=== PATIENT | female | born 1975 | race Caucasian/White ===

== ENCOUNTER 2018-05-28 11:48 | Emergency (ER) | payer OTHER, SELFPAY ==
[2018-05-28 11:53] VITALS: BP 110/71; PULSE 67; RESP 12; TEMP 36.3; O2SAT 100; BMI 32.2
--- NOTE | 2018-05-28 12:35 | ED.BACK ---
HPI - Back Pain/Injury <MEGHNA Holland - Last Filed: 05/28/18 23:03> General Chief Complaint: Back Pain/Injury Stated Complaint: SCIATIC NERVE PAIN Time Seen by Provider: 05/28/18 12:58 Source: patient Mode of arrival: ambulatory Limitations: no limitations History of Present Illness HPI Narrative: 42-year-old female here for complaint of pain into her right lower back and radiating into her right buttocks and into her right thigh. She states that she has had some back pain over the last few days after she went canoeing and then the muscles appear to get tighter and then she started having pain that radiated into her buttocks and thigh area. She denies any trauma to the lower back itself. She is ambulatory she reports that worsening pain with motion and rest reduces her pain. She denies any loss of bladder control or bowel control. She denies any other concerns or complaints at this time. She denies any urinary symptoms. No fevers no chills MD Complaint: back pain Related Data Home Medications Medication Instructions Recorded Confirmed aspirin [Aspir-81] 81 mg PO DAILY 05/28/18 05/28/18 Previous Rx's Medication Instructions Recorded cyclobenzaprine 10 mg PO TID PRN #15 tab 05/28/18 prednisone 40 mg PO DAILY #8 tab 05/28/18 Allergies Allergy/AdvReac Type Severity Reaction Status Date / Time No Known Drug Allergies Allergy Verified 05/28/18 11:57 Review of Systems <MEGHNA Holland - Last Filed: 05/28/18 23:03> Constitutional Denies chills, Denies fever(s), Denies lethargy and Denies weakness Eyes Denies change in vision, Denies eye discharge, Denies irritation and Denies loss of vision ENT Ears, Nose, Mouth, and Throat: Denies change in voice, Denies neck pain and Denies sore throat Cardiovascular Denies chest pain, Denies irregular heart rhythm, Denies lightheadedness, Denies palpitations, Denies dyspnea, Denies dyspnea on exertion and Denies orthopnea Respiratory Denies cough, Denies dyspnea, Denies dyspnea on exertion and Denies wheezing Gastrointestinal Gastrointestinal: Denies abdominal pain, Denies change in bowel habits, Denies diarrhea, Denies nausea and Denies vomiting Genitourinary Denies hematuria, Denies flank pain, Denies urinary incontinence and Denies urinary urgency Musculoskeletal Reports back pain and Denies neck pain Integumentary/Breasts Denies pruritus, Denies erythema, Denies rash and Denies wounds Neurologic Denies confusion, Denies loss of vision and Denies weakness Psychiatric Denies anxiety, Denies confusion, Denies depression, Denies homicidal ideation and Denies suicidal ideation Endocrine Denies palpitations Hematologic/Lymphatic Denies easy bruising Allergic/Immunologic Denies wheezing Exam <MEGHNA Holland - Last Filed: 05/28/18 23:03> Initial Vital Signs Initial Vital Signs: Vital Signs Temperature 97.4 F L 05/28/18 11:53 Pulse Rate 67 05/28/18 11:53 Respiratory Rate 12 05/28/18 11:53 Blood Pressure 110/71 05/28/18 11:53 Pulse Oximetry 100 05/28/18 11:53 Const General: cooperative and well developed Nutritional Appearance: well nourished Orientation: alert, awake, oriented x3 and not confused HENMT Mouth: oral mucosae normal and moist mucous membranes Eyes Conjunctivae: conjunctivae normal Sclera: sclerae normal Pupils: PERRL EOM: EOM intact bilaterally Resp Effort & Inspection: normal respiratory effort, able to speak in complete sentences, no respiratory distress and no use of accessory muscles Auscultation: clear to auscultation bilaterally, no rales, no rhonchi and no wheezes Cardio Rate: regular rate Rhythm: regular rhythm Heart Sounds: no click, no gallops, no murmurs and no rubs Pulses: normal peripheral pulses General: No CVA tenderness Back/Spine/Pelvis Other: Tenderness on palpation to the right lower lumbar paraspinals. No midline tenderness. Tenderness on palpation down into posterior buttocks into posterior thigh. Right straight leg test positive. Distal sensation is intact. Distal pulses are intact. Distal range of motion is intact. Skin General: no rashes or lesions noted, No jaundice and No petechiae Neuro General: alert, oriented x3, gait normal and no focal motor deficits Speech: speech normal <Cristobal Dey MD - Last Filed: 05/30/18 08:47> Initial Vital Signs Initial Vital Signs: Vital Signs Temperature 97.4 F L 05/28/18 11:53 Pulse Rate 67 05/28/18 11:53 Respiratory Rate 12 05/28/18 11:53 Blood Pressure 110/71 05/28/18 11:53 Pulse Oximetry 100 05/28/18 11:53 Course <MEGHNA Holland - Last Filed: 05/28/18 23:03> Vital Signs - 8 hr 05/28/18 11:53 Temperature 97.4 F L Pulse Rate 67 Respiratory Rate 12 Blood Pressure 110/71 Pulse Oximetry 100 <Cristobal Dey MD - Last Filed: 05/30/18 08:47> Vital Signs - 8 hr 05/28/18 11:53 Temperature 97.4 F L Pulse Rate 67 Respiratory Rate 12 Blood Pressure 110/71 Pulse Oximetry 100 MDM - Back Pain/Injury <MEGHNA Holland - Last Filed: 05/28/18 23:03> MDM Narrative Medical decision making narrative: Signs and symptoms presents as nontraumatic right lumbar paraspinal strain with sciatica to right side. Hmis-dxp-yhywsdp ibuprofen as needed for discomfort anti-inflammatory effects. Cyclobenzaprine to help with any muscle spasms. She is also prescribed short course of prednisone for also anti-inflammatory effects. Rest to the area gentle range of motion to help keep muscles loose. Follow up with primary care provider this week for re-evaluation. For any worsening symptoms return to the emergency room. No driving while on the cyclobenzaprine as a can cause drowsiness. Discharge Plan Departure Patient Disposition: Home, Self-Care Clinical Impression: Low back pain Discharge Date/Time: 05/28/18 14:01 Instructions: DI for Back Pain With Sciatica Activity Restrictions/Additional Instructions: Signs and symptoms presents as nontraumatic right lumbar paraspinal strain with sciatica to right side. Jlll-ato-ewioxmc ibuprofen as needed for discomfort anti-inflammatory effects. Cyclobenzaprine to help with any muscle spasms. She is also prescribed short course of prednisone for also anti-inflammatory effects. Rest to the area gentle range of motion to help keep muscles loose. Follow up with primary care provider this week for re-evaluation. For any worsening symptoms return to the emergency room. No driving while on the cyclobenzaprine as a can cause drowsiness. Prescriptions: New cyclobenzaprine 10 mg tablet 10 mg PO TID PRN (Reason: muscle spasm) Qty: 15 RF: 0 prednisone 20 mg tablet 40 mg PO DAILY Qty: 8 RF: 0 No Action aspirin [Aspir-81] 81 mg Tablet,Delayed Release (Dr/Ec) 81 mg PO DAILY RF: 0 Referrals: [facility] [address] [place] [Provider Group] Bradley Esquivel MD [Primary Care Provider] - <Cristobal Dey MD - Last Filed: 05/30/18 08:47> Sign Out Provider Sign Out Attestation: The PA/AESTHETICS INSTRUCTOR functioned independently for the care of this pt, I was available, but not asked to participate in care. I am unable to determine appropriateness of management without personally examining the pt.
[2018-05-28 13:56] VITALS: BP 99/80; PULSE 62; RESP 14; O2SAT 100
== END 2018-05-28 14:01 | disposition home or self-care (01) ==
PROVIDERS: Emergency Provider Nurse Practitioner Family
DX: M54.5 Low back pain (principal)
CPT/HCPCS: 99282

== ENCOUNTER → 2021-12-22 16:40 | Outpatient (CLI) | payer OTHER, SELFPAY | PROVIDERS: Referring Provider Obstetrics & Gynecology; Visit Provider Obstetrics & Gynecology | DX: N83.202 Unspecified ovarian cyst, left side (principal) | CPT/HCPCS: 36415; 86304 ==

== ENCOUNTER → 2022-10-21 15:02 | Outpatient (CLI) | payer OTHER, SELFPAY ==
[2022-10-21 18:24] LABS: COVID19 -Nasal RAPID Negative (Negative)
== END ==
PROVIDERS: Visit Provider Obstetrics & Gynecology
DX: Z20.822 Contact with and (suspected) exposure to COVID-19 (principal); Z01.812 Encounter for preprocedural laboratory examination
CPT/HCPCS: 87635

== ENCOUNTER 2022-10-22 06:26 | Day surgery (SDC) | payer OTHER, SELFPAY ==
[2022-10-20 07:44] VITALS: BMI 33.7
--- NOTE | 2022-10-22 | PATH_ITS ---
[facility] Accession Number: [id number] . 01 Material submitted: . fallopian tube - BILATERAL FALLOPIAN TUBES, LEFT TUBAL CYST . 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 Negative for significant atypia and malignancy. MRV 10/27/2022 1636 Local . 01 Electronically signed: . Maddy Hong MD, Pathologist NPI- [id number] . 01 Gross description: . The specimen is received in formalin labeled with the patient's name, , and bilateral fallopian tubes and left tubal cyst, and consists of two fallopian tubes and a cystic structure. The first fallopian tube is intact, fimbriated, and measures 4.7 x 0.7 cm with no cystic structures identified. Sectioning reveals an unremarkable stellate lumen. The second fallopian tube is fragmented without fimbriae measuring 2.7 cm in length by 0.5 cm in diameter with brown smooth serosa and no cystic structures identified. Sectioning reveals an unremarkable stellate lumen. The cystic structure measures 4.5 x 3.5 x 2.7 cm. The external surface is congested and smooth with an area consistent with fimbriae identified. The external surface of the cyst is inked blue. The cyst contains clear serous fluid, and the internal surface is brown and wrinkled with no excrescences identified, and ranges from 0.1 to 0.3 cm thick. Social Media Content Manager sections are submitted as follows: A1: First fallopian tube to include cross-sections and entire bisected fimbriae. A2: Second nonfimbriated fallopian tube to include fimbriae taken from the cystic structure and cross-sections. A3-A4: Social Media Content Manager cystic structure. ([id number]) /MRV 10/23/2022 1445 Local . 01 Pathologist provided ICD-10: N83.209 . 01 CPT . 656021 Specimen Comment: A courtesy copy of this report has been sent to [phone] Performed at: 01 [facility] [address] [place] [address], [place], [place] [id number] MD Isaias Lam MD Phone: [phone]
[2022-10-22 06:53] VITALS: BP 113/78; PULSE 64; RESP 16; TEMP 36.3; O2SAT 100; BMI 33.7
[2022-10-22] MEDS: LACTATED RINGERS 1,000 ML 100 ML IV ×2 (07:00→08:32)
--- NOTE | 2022-10-22 07:35 | PM.HP.1 ---
History of Present Illness History of Present Illness Date Patient Seen: 10/22/22 Time Patient Seen: 07:36 Chief complaint: PELVIC Narrative: Patient is a 47-year-old 2 para 2 with a left ovarian cyst. She presents for a laparoscopic removal of the left ovarian cyst and possible removal of left ovary. Patient would also like to have her Nexplanon removed. We will remove her tubes at the same time. Patient History Medical History (vaginal after ) Surgical History H/O partial thyroidectomy Previous section Family & Social History Social History: household members spouse,children Tobacco & Substance use: Smoking Status Former smoker alcohol intake current alcohol intake frequency a few times a month Substance Use Type does not use Meds Home Medications and Allergies Home Medications Medication Instructions Recorded Confirmed Type aspirin 81 mg tablet,delayed 81 mg PO DAILY 05/28/18 10/22/22 History release (Aspir-) fluticasone propionate 50 1 spray intranasal DAILY 12/22/21 10/22/22 History mcg/actuation nasal spray,suspension (Flonase Allergy Relief) multivitamin 1 tab PO DAILY 10/20/22 10/22/22 History Allergies Allergy/AdvReac Type Severity Reaction Status Date / Time No Known Drug Allergies Allergy Verified 10/22/22 06:39 Exam Vital Signs (past 8 hours): - 10/22/22 06:53 Temperature 97.4 F L Pulse Rate 64 Respiratory Rate 16 Blood Pressure 113/78 Pulse Oximetry 100 Oxygen Delivery Method Room Air Oxygen Delivery Method Room Air Narrative Exam Narrative: HEENT: No thyromegaly, no anterior cervical or supraclavicular lymphadenopathy. Lungs:Clear to auscultation bilaterally, no wheezes. Cardiovascular: Regular rate and rhythm, no murmurs, rubs, or gallops. Abdomen: Well-healed Pfannenstiel scars. No hepatosplenomegaly. No masses palpable. External genitalia: Normal Vagina: Normal Cervix: Normal Bimanual exam: 7 Week size uterus. Mobile. Left adnexal fullness Extremities: No edema Assessment & Plan Assessment & Plan narrative: Assessment: 47-year-old 2 para 2 with a left ovarian cyst Normal CA [address] Does not desire any further children Plan: Laparoscopic removal of left ovarian cyst, possible left oophorectomy Bilateral salpingectomy Removal of Nexplanon The risks, and alternatives to the procedure were explained to the patient. The risks including bleeding infection, injury to the bowel, bladder, or ureters. Patient understands that there is also a possibility of an open procedure. She understands all of these risks and agrees to proceed. A full par Q was held and consent form was signed. COVID-19 COVID-19 status: Negative Result date/Date tested (Pos, Neg/Pending): 10/21/22 Time Spent With Patient Time with patient: less than 30 minutes Critical Care time: I spent a total of [] minutes of critical care time on this patient's care today; this time is exclusive of procedural time.
--- NOTE | 2022-10-22 07:39 | PM.PREOP ---
Pre-operative Note COVID-19 COVID-19 status: Negative Result date/Date tested (Pos, Neg/Pending): 10/21/22 Criteria for continued procedure: Delay expected to result in less-positive ultimate med/surg outcome Interval Note History & Physical reviewed/Exam performed by Physician: Yes Changes to H&P: No H&P completed within 30 days and has changed as indicated here:: 10/22/22
--- NOTE | 2022-10-22 08:11 | SUR.OPER ---
Lithotomy on padded OR bed, head on pillow,bilateral arms tucked with gel pads. Legs secured in padded yellow fins stirrups. Pt positioned per direction and supervision of Dr Bertrand.
[2022-10-22] MEDS: BUPIVACAINE 0.5% W/ EPI (PF) 30 ML VIAL INJ (08:33)
--- NOTE | 2022-10-22 08:55 | PM.GYNOP.1 ---
Operative Date/Time/Diagnoses Date of procedure: 10/22/22 Time of procedure: 08:55 Pre-op diagnosis: Left ovarian cyst Desires sterilization Nexplanon in place Post-op diagnosis: same Procedure & Clinicians Procedure: Procedures Operation Date: 10/22/22 07:45 Actual Procedure Side Surgeon p Laparoscopic left tubal Cystectomy, bilateral salpingectomy, removal of right arm nexplanon Left Mary Bertrand MD Indications: Nexplanon in place Desires permanent sterilization Left ovarian cyst Surgeon: Mary Bertrand Anesthesia Type: General and Local Operative Notes Findings: 7 week size anteverted uterus Normal right tube and ovary Normal left ovary Left tube with a 9 cm cyst Normal appendix Normal liver and gallbladder Closure Type: primary Specimen(s): left tube and right tube Applied: catheter (In and out) Estimated blood loss (mL): 3 Blood products transfused: none Procedure in detail: After informed consent was obtained, the patient was taken to the operating room where she was placed in the dorsal supine position. After adequate general endotracheal anesthesia was achieved, she was placed in the dorsal lithotomy position, and prepped and draped in the usual sterile fashion. A time-out was performed. A bivalve speculum was placed into the vagina and the anterior lip of the cervix was grasped with a single-tooth tenaculum. The cervical os was sequentially dilated until the Zumi uterine manipulator could pass easily into the endometrial cavity. Single-tooth tenaculum was removed from the anterior lip of the cervix. The bivalve speculum was removed from the vagina. Attention was then turned to the abdomen where 6 cc of 0.5% Marcaine with epinephrine were injected in the umbilical fold. A 5 mm incision was made. Veress needle was placed into the peritoneal cavity, and its placement confirmed by aspiration and drop test. The abdominal cavity was insufflated with 3.2 L of CO2. The Veress needle was removed, and a 5 mm trocar was placed without difficulty. A second incision was made 4 cm to the left lateral umbilicus after 6 cc of 0.5% Marcaine with epinephrine were injected. A 5 mm trocar was placed under direct visualization. Using the probe in the outer trocar the tubes and ovaries were examined. The right tube and ovary were normal. The left ovary was normal. The cyst was coming from the left tube. A third incision was made 4 cm to the right lateral of the umbilicus after 6 cc of 0.5% Marcaine with epinephrine were injected. A third 5 mm trocar was placed under direct visualization. The right tube was grasped with an atraumatic grasper. Using the Bustos seal, the mesosalpinx on the right side was cauterized and cut all the way down to the cornua of the uterus. The tube was amputated at the cornua. This was brought through the right lateral trocar. The fluid in the left tube was drained with a 60 cc syringe. The left tube was grasped with an atraumatic grasper. Using the power seal, the mesosalpinx was cauterized and cut all the way down to the cornua of the uterus. The tube was amputated at the cornua. The camera was moved to the right lateral trocar. The umbilical trocar was removed. The incision was extended to 1 cm. A 10 mm trocar was placed. An endobag was placed through the umbilical trocar. The tube with some fluid was placed into the bag. The trocar was removed, and the bag was brought up through the incision. The pelvis was examined and there was no bleeding noted. The instruments were removed from the abdomen. The CO2 was allowed to escape. All of the incisions were closed with 4-0 Monocryl in a subcuticular fashion. Steri-Strips and Allevyn dressings were placed. Attention was turned to the underside of the right upper arm. The Nexplanon was palpated. The area was cleaned with chlorhexidine. A 3 mm incision was made over the previous incision. Pressure on the distal end of the Nexplanon, the proximal and was grasped with a hemostat and removed without difficulty. Pressure was held with gauze for hemostasis. Steri-Strips and Allevyn dressing were placed. The Zumi uterine manipulator was removed from the uterus. Sponge, lap, and instrument counts were correct x2. The patient tolerated the procedure well, and was taken to PACU in stable condition. Complications: none Post-operative Condition: stable Disposition: PACU Plan for aftercare: Home after recovery
[2022-10-22 08:56] VITALS: BP 131/78; PULSE 74; RESP 16; TEMP 36.5; O2SAT 99
[2022-10-22 09:03] VITALS: BP 98/52; PULSE 66; RESP 16; O2SAT 100
[2022-10-22] MEDS: OXYCODONE IR 5 MG TABLET PO (09:07)
[2022-10-22 09:12] VITALS: BP 96/61; PULSE 65; RESP 16; TEMP 36.4; O2SAT 98
[2022-10-22 09:32] VITALS: BP 99/64; PULSE 66; RESP 16; TEMP 35.5
== END 2022-10-22 09:39 | disposition home or self-care (01) ==
PROVIDERS: Referring Provider Obstetrics & Gynecology; Visit Provider Obstetrics & Gynecology
PROC: (CPT 58661; principal; 2022-10-22 07:45)
DX: Z30.2 Encounter for sterilization (principal); Z30.46 Encounter for surveillance of implantable subdermal contraceptive; N83.8 Other noninflammatory disorders of ovary, fallopian tube and broad ligament
CPT/HCPCS: 58661; 11982; J0330; J1100; J2405; J2704; J3010